=== PATIENT | male | born 1970 | race Caucasian/White ===

== ENCOUNTER 2017-09-30 07:05 | Day surgery (SDC) | payer OTHER ==
[~2017-09-30] VITALS: Ht 172.7 cm; Wt 104.3 kg
[~2017-09-30 07:05] MED LIST: CALCIUM CITRAT250 MG PO; HAIR SKIN NAIL1 EACH PO; MULTIVITAMINS1 EAC8 PO
--- NOTE | 2017-09-30 10:53 | NUR ---
09/30/17 1053 Ingris Torrez 1036 PATIENT ARRIVES TO PACU UNRESPONSIVE TO PAIN OR VERBAL STIMULI. PATIENT REQUIRES RN HOLD JAW THRUST, ORAL AIRWAY INPLACE, MASK INITIALLY AT 6L AND INCREASED TO 8L.
[2017-09-30] MEDS ORDERED: NORCO 5-325 TA1 EACH PO (11:36)
--- NOTE | 2017-09-30 12:45 | NUR ---
CARLA REDMAN REQ PAIN MED AND GIVEN.
--- NOTE | 2017-09-30 14:21 | OR ---
[facility] [address] [place], [place] [address] Signed DATE OF OPERATION: 09/30/2017 SURGEON: Mauro Mendez MD PREOPERATIVE DIAGNOSES: 1. Subxiphoid incisional hernia (2.9 x 1.6 cm). 2. Epigastric incisional hernias x2, both measuring 1.2 cm, just above the umbilicus. POSTOPERATIVE DIAGNOSES: 1. Subxiphoid incisional hernia (2.9 x 1.6 cm). 2. Epigastric incisional hernias x2, both measuring 1.2 cm just above the umbilicus. PROCEDURES: Incisional herniorrhaphy x3 with intraabdominal Ventralex mesh x3, measuring 6.4 cm at the subxiphoid location and 4.3 cm at both the supraumbilical hernias. ESTIMATED BLOOD LOSS: None. INDICATIONS: Bam is a 47-year-old gentleman, who underwent emergent gastric surgery in [place] for a perforated ulcer. He is pretty sure they removed part of his stomach. He has a symptomatic subxiphoid hernia, that is very clear on exam. Also, just above the umbilicus at the end of his midline incision, I could feel a 3 cm area of herniated tissue, that was certainly incarcerated. We sent him for CT scan of the abdomen and sure enough he has a 2.9 x 1.6 cm subxiphoid hernia containing the transverse colon. He has two incisional hernias just above the umbilicus, there are apart by 1.5 cm, each hernia fascial defect measures 1.2 cm, they both contained fat. The more inferior of those two hernias has the most fat measuring around 3 x 5 cm. I had met with Bam in the office with respect to his incisional hernias. He was given a brochure and we looked at that carefully and we reviewed the difference between a primary suture repair and a mesh repair. He also understands expected intraop and postop course. There is risk of surgery including, but not limited to bleeding, infection, scarring, change in contour of the skin, damage to bowel, infection of mesh requiring removal, recurrent hernias, and chronic pain. He had expressed understanding and wished to proceed. I had warned Bam, it is very common to have significant adhesions in the upper abdomen after abdominal surgery, particularly with the omentum and transverse colon, and there was some risk that he might have to stay in the hospital a day or two. He had expressed understanding and wished to proceed. Electronically Signed By: MAURO MENDEZ MD 09/30/17 1421 PATIENT NAME: BAM DOBSON OPERATIVE REPORT DATE OF : 68 REPORT #: [id number] PHYSICIAN: MUARO MENDEZ MD PCP: LELO CALDWELL NP REPORT IS CONFIDENTIAL AND NOT TO BE RELEASED WITHOUT AUTHORIZATION [address] [address] Signed PROCEDURE NOTE: I met with Bam and his family in our preop area. We could easily identify the subxiphoid hernia, we marked that appropriately. We then found the herniated fat just above the umbilicus and we circled that appropriately. I had explained to Bam and his , there is the two hernias [id number] just above the umbilicus. After this, Bam was taken into our operating room and placed in a supine position under general endotracheal tube anesthesia. He was given preoperative antibiotics along with subcutaneous heparin. SCDs were utilized. Saxena catheter was inserted with return of clear yellow urine without difficulty. He was then prepped and draped in the usual sterile fashion. After this, we used two separate vertical midline incisions, one in the subxiphoid area and the other just above the umbilicus. All three hernias were located and the hernia sacs were excised and passed off the field. I was able to reduce the omentum from the most inferior hernia just above the umbilicus. At the subxiphoid site, it took a few minutes to take down adhesions in the transverse colon, removed that away from the fascial edges. We then used our 6.4 cm round Ventralex mesh for the subxiphoid location and for the two other hernias we used our 4.3 cm mesh, one for each of the hernias. Consequently, three separate pieces of mesh were utilized. The mesh was placed inside the abdomen, brought it up, flushed against the posterior abdominal wall. We used #1 Prolene transversely to close all three fascial defects and the Prolene suture went through the tab on the mesh several times to help hold it in place and keep it centered. The tabs were then cut flush with the fascia and discarded. After this, local anesthetic was copiously injected into both operative morataya. The wounds were irrigated and suctioned out until clear. The skin and dermis were then reapproximated with interrupted 3-0 subcuticular Monocryl sutures. Dry gauze and tape were then applied. Bam's Saxena catheter was removed in the OR. He was awakened from his anesthesia, extubated in the OR, and taken to recovery room in stable condition. Mauro Mendez MD ALB/MODL /[id number] cc: MD Lelo Pelayo, Nurse practitioner Electronically Signed By: MAURO MENDEZ MD 09/30/17 1421 PATIENT NAME: BAM DOBSON OPERATIVE REPORT DATE OF : 68 REPORT #: [id number] PHYSICIAN: MAURO MENDEZ MD PCP: LELO CALDWELL NP REPORT IS CONFIDENTIAL AND NOT TO BE RELEASED WITHOUT AUTHORIZATION [address] [place], [place] [address] Signed Copies: MAURO MENDEZ MD ~ Electronically Signed By: MAURO MENDEZ MD 09/30/17 1421 PATIENT NAME: BAM DOBSON OPERATIVE REPORT DATE OF : 68 REPORT #: [id number] PHYSICIAN: MAURO MENDEZ MD PCP: LELO CALDWELL NP REPORT IS CONFIDENTIAL AND NOT TO BE RELEASED WITHOUT AUTHORIZATION
== END 2017-09-30 13:00 | disposition home or self-care (01) ==
LOC: DS 07:05
PROVIDERS: Colon & Rectal Surgery
PROC: 0WUF0JZ Supplement Abdominal Wall with Synthetic Substitute, Open Approach (ICD-10-PCS; principal; 2017-09-30 09:02)
DX: K43.2 Incisional hernia without obstruction or gangrene (principal); E66.9 Obesity, unspecified; E11.9 Type 2 diabetes mellitus without complications; Z79.899 Other long term (current) drug therapy
CPT/HCPCS: 00832; C1781; J0131; J0330; J0690; J0735; J1100; J1644; J1885; J2250; J2405; J2704; J3475; J7120

== ENCOUNTER 2018-08-31 08:55 | Day surgery (SDC) | payer OTHER ==
[~2018-08-31] VITALS: Ht 172.7 cm; Wt 108.9 kg
[~2018-08-31 08:55] MED LIST changes: +FISH OIL 1,0001 EAC6 PO; +NORCO 5-325 TA1 EACH PO
[2018-08-31] MEDS ORDERED: GABAPENTIN300 MG PO (09:23)
[2018-08-31] MEDS ORDERED: ULTRAM50 MG PO (09:23)
[2018-08-31] MEDS ORDERED: VITAMIN D32000 UNI1 PO (09:24)
[2018-08-31] MEDS ORDERED: BIOTIN5000 MCG PO (09:25)
--- NOTE | 2018-08-31 11:58 | NUR ---
08/31/18 1158 Elise Morris 1155 PT TO PACU SLEEPING BUT AROUSABLE O2 PLACED VIA NASAL CANNULA. PT PASSING GAS DENIES PAIN OR NAUSEA
--- NOTE | 2018-09-01 06:30 | OR ---
[facility] [address] [place], [place] [address] Signed DATE OF OPERATION: 08/31/2018 SURGEON: Mauro Mendez MD POSTOPERATIVE DIAGNOSES: 1. Left upper quadrant and left lower quadrant abdominal wall pain and swelling. 2. Previous gastric surgery. 3. Repair of small epigastric incisional hernias x2 with mesh. 4. Unremarkable abdominal wall ultrasound and CT scan of abdomen and pelvis. POSTOPERATIVE DIAGNOSES: 1. 4 mm polyps x4 at 18 cm (rectum). 2. 6 mm polyp at 110 cm. 3. 4 mm polyp in left colon unable to biopsy due to poor prep. 4. Small internal anal skin tag. PROCEDURE PERFORMED: Colonoscopy with hot biopsy. ESTIMATED BLOOD LOSS: None. INDICATIONS: Bam bills is a 48-year-old gentleman who had what sounds like a perforated ulcer. He had to have emergency surgery. In the meantime, he has lost over 120 pounds. He developed two small incisional hernias within that upper midline that epigastric midline incision. We had repaired those with 2 small pieces of mesh. He was still having pain and swelling in his left upper quadrant and his left lower quadrant. We did ultrasound the abdominal wall. We were unable to palpate anything of pathologic significance on physical exam. Consequently, he had an ultrasound of both areas. That was unremarkable. His symptoms persisted, so he had a CT scan about a month later. It was also unremarkable other than a small single calcified gallstone. Consequently, he was asked to come see me for a colonoscopy. It sounds like he had a colonoscopy back in 2016. He also mentioned the upper endoscopy in 2016. He tells me at that time he was H pylori positive and treated. I gave him a pamphlet on colonoscopy and we reviewed that together in detail. He understands the nature of that test along with its risks including, but not limited to gas bloating, crampy abdominal pain, bleeding, perforation, requiring surgery, and missed diagnosis. He had expressed understanding and wished to proceed. Electronically Signed By: MAURO MENDEZ MD 09/01/18 0630 PATIENT NAME: BAM DOBSON OPERATIVE REPORT DATE OF : 68 REPORT #: [id number] PHYSICIAN: MAURO MENDEZ MD PCP: LELO CALDWELL NP REPORT IS CONFIDENTIAL AND NOT TO BE RELEASED WITHOUT AUTHORIZATION [facility] [address] [place], [place] [address] Signed PROCEDURE NOTE: Bam was taken into our endoscopy suite and placed in the left lateral decubitus position. He was given IV sedation with 7 mg of Versed and 100 mcg of fentanyl. A digital rectal exam was performed and this was unremarkable. Very little in the way of external hemorrhoids. He had good sphincter tone. Prostate was just slightly swollen and mildly indurated. No dominant nodules. The adult colonoscope was inserted and we immediately encountered moderately heavy thick liquid particulate stool matter. We were unable to suction that out completely. We went ahead and removed the 4 small polyps at the top of his rectum. The scope had been advanced all the way around into the cecum itself. Again, he had several areas of thick liquid particulate stool matter. Scope was slowly withdrawn. We found his polyp at 110 cm and easily removed that with our hot biopsy forceps. We saw another polyp somewhere in mid to distal left colon measuring about 4 mm. Unfortunately, he had so much liquid stool that we lost it several times. We did our best to irrigate and suction out the liquid particulate stool matter, but it continued to clog our scope. Eventually, we could not find the polyp. The scope was withdrawn further. We saw no evidence of any diverticulosis. We were back in the rectum and we could easily see our previous biopsy sites. Upon retroflexion of the scope, he had just a tiny internal anal skin tag, but again quite a bit of that distal rectum was covered in liquid particulate stool matter. After this, the gas was suctioned out and the colonoscope removed. Bam tolerated the procedure quite well. RECOMMENDATIONS: I will see Bam back in my office in 7 to 14 days to review his results. He needs to consider a repeat endoscopy anywhere from a few months out to about three years. He should consider doing some additional bowel prep. If indeed he proceeds with an abdominoplasty and/or panniculectomy, he is more than welcome to do that at this time. Mauro Mendez MD ALB/MODL /[id number] cc: MD Lelo Pelayo NP Electronically Signed By: MAURO MENDEZ MD 09/01/18 0630 PATIENT NAME: BAM DOBSON OPERATIVE REPORT DATE OF : 68 REPORT #: [id number] PHYSICIAN: MAURO MENDEZ MD PCP: LELO CALDWELL NP REPORT IS CONFIDENTIAL AND NOT TO BE RELEASED WITHOUT AUTHORIZATION [facility] [address] [place], [place] [address] Signed Copies: MAURO MENDEZ MD ~ Electronically Signed By: MAURO MENDEZ MD 09/01/18 0630 PATIENT NAME: BAM DOBSON OPERATIVE REPORT DATE OF : 68 REPORT #: [id number] PHYSICIAN: MAURO MENDEZ MD PCP: LELO CALDWELL NP REPORT IS CONFIDENTIAL AND NOT TO BE RELEASED WITHOUT AUTHORIZATION
== END 2018-08-31 12:48 | disposition home or self-care (01) ==
LOC: DS 08:55 → OPS 08:55 → DS 10:30 → OPS 10:30
PROVIDERS: Colon & Rectal Surgery
PROC: 0DBE8ZX Excision of Large Intestine, Via Natural or Artificial Opening Endoscopic, Diagnostic (ICD-10-PCS; principal; 2018-08-31 10:30)
DX: D12.6 Benign neoplasm of colon, unspecified (principal); K63.5 Polyp of colon; K62.1 Rectal polyp; K64.4 Residual hemorrhoidal skin tags; E66.9 Obesity, unspecified; E11.9 Type 2 diabetes mellitus without complications; Z98.890 Other specified postprocedural states; Z68.36 Body mass index [BMI] 36.0-36.9, adult; Z79.899 Other long term (current) drug therapy
CPT/HCPCS: 99153; G0500; J2250; J3010; J7120

== ENCOUNTER 2018-10-07 08:30 | Day surgery (SDC) | payer OTHER ==
[~2018-10-07] VITALS: Ht 172.7 cm; Wt 108.9 kg
[~2018-10-07 08:30] MED LIST changes: +BIOTIN5000 MCG PO; +GABAPENTIN300 MG PO; +ULTRAM50 MG PO; +VITAMIN D32000 UNI1 PO
--- NOTE | 2018-10-07 10:09 | NUR ---
10/07/18 1009 Sheets,Sharon 1002 PT ARRIVED TO PACU ON 3 VIA NC, RESP EVEN AND UNLABORED. PT WOKE TO VERBAL STIMULI AND IS ORIENTED TO PACU. PT BACK TO SLEEP AND SNORING NOTED.
--- NOTE | 2018-10-08 08:22 | OR ---
[facility] [address] [place], [place] [address] Signed DATE OF OPERATION: 10/07/2018 SURGEON: Mauro Mendez MD PREOPERATIVE DIAGNOSES: 1. Left upper quadrant abdominal pain. 2. Left lower quadrant abdominal pain. POSTOPERATIVE DIAGNOSES: 1. 3 mm polyps x3 at 18 cm (rectum). 2. Cbbxjvc-ls-syhqfwed sigmoid diverticulosis. 3. Xeziwyi-pr-zzvdukml internal hemorrhoids. 4. Internal anal skin tag x1. PROCEDURE: Colonoscopy with hot biopsy. ESTIMATED BLOOD LOSS: None. INDICATIONS: Bam is a 48-year-old gentleman who has been in our office several times. He has been having trouble with left upper quadrant and left lower quadrant abdominal pain. On a previous colonoscopy, he reminded me that his prep was rather poor. On this occasion, he underwent a double bowel prep. He had an ultrasound of the abdomen as well and it was unremarkable. He had a CT scan from last year and it was unremarkable with respect to his pain. Consequently, we decided to repeat his colonoscopy with a much better bowel prep. I reviewed with Bam the nature of the colonoscopy along with its risks including, but not limited to gas bloating, crampy abdominal pain, bleeding, perforation requiring surgery, and missed diagnosis. He also understands the need for IV conscious sedation. He had expressed understanding and wished to proceed. PROCEDURE NOTE: Bam was taken into our endoscopy suite and placed in the left lateral decubitus position. He was given IV sedation with 6 mg of Versed and 125 mcg of fentanyl. A digital rectal exam was performed and this was unremarkable. He has a slightly indurated prostate gland, but otherwise unremarkable. The adult colonoscope was introduced and advanced under direct visualization of camera. He has a somewhat tortuous sigmoid colon, although not particularly difficult. He does have diverticulosis. They were moderate in size, a few to moderate in number, and scattered Electronically Signed By: MAURO MENDEZ MD 10/08/18 0822 PATIENT NAME: BAM DOBSON OPERATIVE REPORT DATE OF : 68 REPORT #: [id number] PHYSICIAN: MAURO MENDEZ MD PCP: LELO CALDWELL NP REPORT IS CONFIDENTIAL AND NOT TO BE RELEASED WITHOUT AUTHORIZATION [facility] [address] [place], [place] [address] Signed about. In due time, we made our way into the cecum itself. On this occasion, his prep was average. He had a few areas with liquid particulate stool matter. Most of that was irrigated and suctioned out. We could easily see the appendiceal orifice, the blackfeet's foot, and ileocecal valve. We had taken pictures throughout for photodocumentation. The scope was then slowly withdrawn. Again, he has some sigmoid diverticulosis. In the rectum itself at the very top at 18 cm, he had 3 small polyps, which were all removed easily with hot biopsy forceps and sent off to the Pathology Department. Upon retroflexion of the scope, he has some very routine small internal hemorrhoid columns and 2 tiny internal anal skin tags. After this, the gas had been suctioned out and the colonoscope removed. Bam tolerated the procedure quite well. RECOMMENDATIONS: I will see Bam back in my office in 7 to 14 days to review his pathology results and his previous x-ray results as well. Mauro Mendez MD ALB/MODL /[id number] cc: LASHONDA Soto MD Copies: MAURO MENDEZ MD ~ Electronically Signed By: MAURO MENDEZ MD 10/08/18 0822 PATIENT NAME: BAM DOBSON URIEL OPERATIVE REPORT DATE OF : 68 REPORT #: [id number] PHYSICIAN: MAURO MENDEZ MD PCP: LELO CALDWELL NP REPORT IS CONFIDENTIAL AND NOT TO BE RELEASED WITHOUT AUTHORIZATION
== END 2018-10-07 10:52 | disposition home or self-care (01) ==
LOC: OPS 08:30 → DS 08:30 → OPS 09:15
PROVIDERS: Colon & Rectal Surgery
PROC: 0DBP8ZZ Excision of Rectum, Via Natural or Artificial Opening Endoscopic (ICD-10-PCS; principal; 2018-10-07 09:15)
DX: K62.1 Rectal polyp (principal); K57.30 Diverticulosis of large intestine without perforation or abscess without bleeding; K64.8 Other hemorrhoids; K64.4 Residual hemorrhoidal skin tags; N42.89 Other specified disorders of prostate; K63.89 Other specified diseases of intestine; E11.9 Type 2 diabetes mellitus without complications; E66.9 Obesity, unspecified; Z98.890 Other specified postprocedural states; Z79.899 Other long term (current) drug therapy; Z68.36 Body mass index [BMI] 36.0-36.9, adult
CPT/HCPCS: 99153; G0500; J2250; J3010; J7120